=== PATIENT | female | born 1955 | race African-American/Black ===

== ENCOUNTER → 2019-08-19 | Outpatient (CLI) | payer BC, MEDICARE ==
[2016-06-15 11:15] VITALS: BP 130/80
[~2019-08-19] MED LIST: MULT-245 PO
--- NOTE | 2019-08-19 17:30 | RAD ---
CHEST PA LATERAL History: Shortness of breath.. Comparison: 06/01/2016 FINDINGS: The cardiomediastinal silhouettes are within normal limits. Aorta again is mildly tortuous/ectatic. Abnormal opacity in the right lung base laterally. No evidence of pneumothorax. No evidence of pleural effusion. Bones appear grossly intact. IMPRESSION: Abnormal opacity in the right lower lobe laterally, most likely pneumonia. Recommend short-term chest x-ray follow-up to document resolution of this finding. Electronically signed by: Delmer Jhaveri MD (08/19/2019 5:27 PM) [facility]
== END | disposition home or self-care (01) ==
LOC: DXRAD 14:44
PROVIDERS: ATTEND Family Medicine
DX: R06.02 Shortness of breath (principal); R05 Cough; R07.89 Other chest pain; R53.1 Weakness; R63.0 Anorexia
CPT/HCPCS: 71046

== ENCOUNTER 2019-08-25 18:58 | Inpatient (IN) | payer MEDICARE, BC ==
[~2019-08-25] VITALS: Ht 165.1 cm; Wt 56.2 kg
[2019-08-25 19:24] VITALS: BP 127/78
[2019-08-25] MEDS ORDERED: MULT-245 PO (20:22)
[2019-08-25] MEDS ORDERED: ACETAMINOPHEN 500 MG TABLET PO PRN (22:30)
[2019-08-25] MEDS ORDERED: MAG HYDROX/AL HYDROX/SIMETH 30 ML ORAL.SUSP PO PRN (22:30)
[2019-08-25 23:24] VITALS: BP 113/75
[2019-08-26 05:38] VITALS: BP 109/65
[2019-08-26 06:10] LABS: BASO % 0 % (0-3); EOS # 0.2 x10^3/uL (0.0-0.7); EOS % 3 % (0-3); HEMATOCRIT 36.8 % (36.0-47.0); HEMOGLOBIN 11.9 g/dL (12.0-15.5); LYMPH # 2.3 x10^3/uL (1.0-4.8); LYMPH % 36 % (24-48); MEAN CORPUSCULAR HEMOGLOBIN 32 pg (25-35); MEAN CORPUSCULAR HGB CONC 32 g/dL (31-37); MEAN CORPUSCULAR VOLUME 99 fL (79-100); MONO # 0.4 x10^3/uL (0.0-1.1); MONO % 6 % (0-9); NEUT # 3.5 x10^3uL (1.8-7.7); NEUT % 55 % (31-73); PLATELET COUNT 400 x10^3/uL (140-400); RED CELL DISTRIBUTION WIDTH 12.3 % (11.5-14.5); WHITE BLOOD COUNT 6.4 x10^3/uL (4.0-11.0)
[2019-08-26 06:17] LABS: CALCIUM 9.2 mg/dL (8.5-10.1); CREATININE 0.7 mg/dL (0.6-1.0); GFR 101.6; POTASSIUM 4.5 mmol/L (3.5-5.1)
[2019-08-26] MEDS: guaiFENesin DM 200MG/20MG 10 ML SYRUP PO PRN (09:30)
[2019-08-26] MEDS: IPRATRPIUM/ALBUTEROL 0.5/2.5MG 3 ML NEBU. NEB SCH ×3 (09:45→20:54)
--- NOTE | 2019-08-26 10:07 | RAD ---
EXAM: CHEST PA LATERAL INDICATION: Pneumonia. TECHNIQUE: PA and lateral views COMPARISON: 08/19/2019 FINDINGS: The heart size is normal. The great vessels appear unremarkable. There is no hilar or mediastinal mass. Interval improvement and near resolution in the opacity in the right lower lobe. There is no pleural effusion or pneumothorax. There are no significant osseous abnormalities. IMPRESSION: Improving right lower lobe pneumonia. Not completely resolved. Electronically signed by: Branden Raymundo MD (08/26/2019 10:04 AM) [id number]
[2019-08-26 10:41] VITALS: BP 103/66
[2019-08-26 14:47] VITALS: BP 112/69
[2019-08-26 19:15] VITALS: BP 100/62
[2019-08-26] MEDS: LACTOBACILLUS RHAMNOSUS GG 1 CAPSULE. PO SCH (21:02)
[2019-08-26] MEDS: ZOLPIDEM 5 MG TABLET. PO PRN (21:02)
--- NOTE | 2019-08-27 03:36 | PN ---
DATE: 08/26/2019 SUBJECTIVE: A 64-year-old female admitted with pneumonia and abscess to her right lower lobe. The patient is feeling a little better this morning. She has been having fever and chills, night sweats, difficulty in breathing, and coughing up phlegm. She said she is doing a little better this morning after receiving some IV antibiotic therapy. OBJECTIVE: VITAL SIGNS: Blood pressure 110/65, respiratory rate 20, pulse 70, afebrile. GENERAL: The patient is alert and oriented. LUNGS: Diminished, primarily in the right lower lobe, poor movement of air. CARDIOVASCULAR: Regular sinus rhythm. ABDOMEN: Soft, nontender, no rebound or guarding. Positive bowel sounds, no hepatosplenomegaly noted. EXTREMITIES: No clubbing, cyanosis, nor edema. NEUROLOGIC: The patient is stable. Chest x-ray report pending, but CT scan shows abscess to the right lower lobe. IMPRESSION: Abscess to the right lower lobe, pneumonia to the right lower lobe, organism unspecified. Acute respiratory distress; emphysema, centrilobular. Continue with present drug regimen, breathing treatments and antibiotic therapy. IAN DE LA O MD DR: ELY/rober JOB#: [id number] / [id number]
[2019-08-27] MEDS: IPRATRPIUM/ALBUTEROL 0.5/2.5MG 3 ML NEBU. NEB SCH ×3 (05:46→22:40)
[2019-08-27 06:22] VITALS: BP 104/67
[2019-08-27] MEDS: LACTOBACILLUS RHAMNOSUS GG 1 CAPSULE. PO SCH ×2 (09:30→21:18)
[2019-08-27] MEDS: guaiFENesin DM 200MG/20MG 10 ML SYRUP PO PRN (09:40)
[2019-08-27 11:00] VITALS: BP 106/66
[2019-08-27 15:00] VITALS: BP 115/68
[2019-08-27 19:22] VITALS: BP 112/73
[2019-08-27] MEDS: ZOLPIDEM 5 MG TABLET. PO PRN (21:18)
[2019-08-27 22:23] VITALS: BP 110/69
--- NOTE | 2019-08-28 01:29 | PN ---
DATE: SUBJECTIVE: A 64-year-old female in with pneumonia. The patient is still feeling fairly weak, but improved overall. OBJECTIVE: VITAL SIGNS: Blood pressure 110/70, respiratory rate 20, pulse 80, afebrile. GENERAL: The patient is alert, oriented. LUNGS: Diminished in the bases, but markedly improved. Oxygenation markedly improved. She continues to improve. CARDIOVASCULAR: Regular sinus rhythm. ABDOMEN: Soft, nontender. EXTREMITIES: Stable. NEUROLOGIC: Stable. IMPRESSION: Pneumonia of unspecified etiology, acute exacerbation of acute respiratory distress, emphysema, abscess to the right lower lobe. Chest x-ray shows improvement. Continue with IV antibiotic therapy for the above-mentioned situation. IAN DE LA O MD DR: ELY/rober JOB#: [id number] / [id number]
[2019-08-28 05:30] VITALS: BP 101/66
[2019-08-28] MEDS: IPRATRPIUM/ALBUTEROL 0.5/2.5MG 3 ML NEBU. NEB SCH ×2 (05:34→09:18)
[2019-08-28] MEDS: LACTOBACILLUS RHAMNOSUS GG 1 CAPSULE. PO SCH (08:34)
[2019-08-28] MEDS ORDERED: LEVO500T59 PO (09:30)
[2019-08-28] MEDS ORDERED: IPRA3AMP29 NEB (09:30)
== END 2019-08-28 11:30 | disposition home or self-care (01) | DRG 177 ==
LOC: 1 SOUTH 18:58
PROVIDERS: ADMIT Family Medicine; ATTEND Family Medicine
DX: J85.1 Abscess of lung with pneumonia (principal); J15.6 Pneumonia due to other Gram-negative bacteria; J43.9 Emphysema, unspecified; R06.03 Acute respiratory distress; E03.9 Hypothyroidism, unspecified; E78.01 Familial hypercholesterolemia
CPT/HCPCS: 36415; 71046; 80048; 83605; 85025; 94640; J0696; J1956